=== PATIENT | female | born 1985 | race Hispanic/Latino ===

== ENCOUNTER 2021-11-12 14:28 | Inpatient (IN) | payer OTHER ==
[~2021-11-12] VITALS: Ht 160 cm; Wt 68.0 kg
[2021-11-12] MEDS ORDERED: SODIUM CHLORIDE 0.9% 1000ML 1,000 ML IV STA (14:46)
[2021-11-12] MEDS ORDERED: ONDANSETRON HCL INJ 2MG/ML 2ML 2 MG/ML VIAL IV STA (14:46)
[2021-11-12] MEDS ORDERED: MAGNESIUM/ALUMINUM/SIMETHICONE 30 ML UDC PO ONE (15:00)
[2021-11-12] MEDS ORDERED: LIDOCAINE VISC 2% SOLN 15 ML UDC PO ONE (15:00)
[2021-11-12] MEDS ORDERED: BELLADONNA ALK/PHENOBARBITAL 5 ML UDC PO ONE (15:00)
[2021-11-12 15:16] LABS: BASOPHILS % 0.4 % (0.0-1.0); EOSINOPHILS % 0.1 % (0.0-6.0); HEMATOCRIT 35.2 % (34.2-44.1); HEMOGLOBIN 11.5 g/dL (12.0-16.0); LYMPHOCYTES # (AUTO) 1.5 (1.0-3.2); LYMPHOCYTES % 14.3 % (18.0-39.1); MEAN CORPUSCULAR HEMOGLOBIN 30.8 pg (28-32); MEAN CORPUSCULAR HGB CONC 32.7 g/dL (31-35); MEAN CORPUSCULAR VOLUME 94.4 fL (81-99); MONOCYTES # (AUTO) 0.9 (0.2-0.8); MONOCYTES % 8.9 % (4.4-11.3); NEUTROPHILS # (AUTO) 7.8 (2.1-6.9); NEUTROPHILS % 75.9 % (38.7-80.0); PLATELET COUNT 272 x10e3/uL (140-360); RED BLOOD COUNT 3.73 x10e6/uL (3.6-5.1); RED CELL DISTRIBUTION WIDTH 12.2 % (11.7-14.4)
[2021-11-12 15:34] LABS: ALBUMIN 2.5 g/dL (3.5-5.0); ALBUMIN/GLOBULIN RATIO 0.7 (0.8-2.0); CALCIUM 8.4 mg/dL (8.4-10.2); CREATININE, SERUM 4.48 mg/dL (0.57-1.11)
[2021-11-12 15:45] LABS: CREATINE KINASE MB 1.7 ng/mL (0-5.0)
[2021-11-12] MEDS ORDERED: SODIUM CHLORIDE 0.9% 1000ML 1,000 ML IV SCH (18:15)
[2021-11-12] MEDS ORDERED: ASPIRIN 81 MG CHEW TAB PO STA (18:17)
[2021-11-12] MEDS ORDERED: Morphine 2mg Syringe 2 MG/ML SYR IV PRN (18:30)
[2021-11-12] MEDS ORDERED: ONDANSETRON HCL INJ 2MG/ML 2ML 2 MG/ML VIAL IV PRN (18:30)
[2021-11-12] MEDS ORDERED: LABETALOL HCL 100 MG TAB PO ONE (18:45)
[2021-11-12] MEDS ORDERED: ASPIRIN 81 MG CHEW TAB ONE (18:55)
[2021-11-12] MEDS ORDERED: NIFEDIPINE 10 MG CAP PO SCH (21:30)
[2021-11-12 23:09] VITALS: BP 135/93
[2021-11-13] MEDS ORDERED: FAMOTIDINE 20 MG TAB PO SCH (07:30)
[2021-11-13] MEDS ORDERED: ASPIRIN 81 MG ENTERIC COATED PO SCH (09:00)
[2021-11-13] MEDS ORDERED: CARVEDILOL 3.125 MG TAB PO SCH (09:00)
[2021-11-13] MEDS ORDERED: HEPARIN SOD (PORCINE) 5,000 UNIT/ML VIAL SC SCH (09:00)
[2021-11-17] MEDS ORDERED: CLONAZEPAM0.5 MG PO (09:31)
[2021-11-17] MEDS ORDERED: PEPTO-BISM262 MG/15 PO (09:31)
[2021-11-17] MEDS ORDERED: ONDANSETRON ODT8 MG PO (09:31)
[2021-11-17] MEDS ORDERED: ASPIRIN81 MG PO (09:31)
[2021-11-17] MEDS ORDERED: OMEPRAZOLE20 MG PO (09:31)
[2021-11-17] MEDS ORDERED: LABETALOL HCL100 MG PO (09:31)
== END 2021-11-12 19:00 | disposition left against medical advice (07) | DRG 683 ==
LOC: ER 14:58 → ERHOLD 18:17
PROVIDERS: ADMIT Internal Medicine; ATTEND Internal Medicine
DX: N17.9 Acute kidney failure, unspecified (principal); I12.0 Hypertensive chronic kidney disease with stage 5 chronic kidney disease or end stage renal disease; E87.2 Acidosis; N18.5 Chronic kidney disease, stage 5; K52.9 Noninfective gastroenteritis and colitis, unspecified; E11.22 Type 2 diabetes mellitus with diabetic chronic kidney disease; Z20.822 Contact with and (suspected) exposure to COVID-19; Z83.3 Family history of diabetes mellitus; Z82.49 Family history of ischemic heart disease and other diseases of the circulatory system; Z79.82 Long term (current) use of aspirin
CPT/HCPCS: 36415; 74176; 80053; 82550; 82553; 83690; 83735; 84484; 84702; 85025; 93005; 93306; 99284; J7030; U0002